=== PATIENT | male | born 1935 | race Caucasian/White ===

== ENCOUNTER 2019-03-24 14:54 | Emergency (ER) | payer OTHER ==
--- NOTE | 2019-03-24 15:26 | ER Document Report ---
ED Medical Screen (RME) - General Chief Complaint: Diarrhea Stated Complaint: DIARRHEA Time Seen by Provider: 03/24/19 15:18 Notes: HPI: 83-year-old male with history of renal failure who is not yet on dialysis presenting for shortness of breath for 1 week. Patient states he has some intermittent chest pain and feels like his heart is beating irregularly at times. He denies abdominal pain but states he has had multiple episodes of diarrhea over the last week. No blood in his stool that he is aware of. No fever. Patient states that he has a shunt in the left forearm and wrist area I have greeted and performed a rapid initial assessment of this patient. A comprehensive ED assessment and evaluation of the patient, analysis of test results and completion of the medical decision making process will be conducted by additional ED providers PHYSICAL EXAMINATION: GENERAL: Well-appearing, well-nourished and in no acute distress. HEAD: Atraumatic, normocephalic. EYES: sclera anicteric, conjunctiva are normal. ENT: Moist mucous membranes. NECK: Normal range of motion LUNGS: Normal work of breathing, slight scattered crackles at the bases bilaterally HEART: 2+ radial pulses bilaterally, regular rate and rhythm ABD: limited by positioning for exam in triage. No abdominal pain on palpation EXTREMITIES: no pitting or edema. No cyanosis. Shunt in the left wrist and forearm region with positive thrill and bruit NEUROLOGICAL: No focal neurological deficits. Moves all extremities spontaneously and on command. PSYCH: Normal mood, normal affect. SKIN: Warm, Dry, normal turgor, no rashes or lesions noted. - Related Data Allergies/Adverse Reactions: Sulfa (Sulfonamide Antibiotics) Allergy (Verified 03/24/19 15:18) Physical Exam - Vital signs Vitals: Temp Pulse Resp BP Pulse Ox 98.1 F 54 L 20 148/54 H 96 03/24/19 15:07 03/24/19 15:07 03/24/19 15:07 03/24/19 15:07 03/24/19 15:07 Course - Vital Signs Vital signs: Temp Pulse Resp BP Pulse Ox 98.1 F 54 L 20 148/54 H 96 03/24/19 15:07 03/24/19 15:07 03/24/19 15:07 03/24/19 15:07 03/24/19 15:07
--- NOTE | 2019-03-24 16:16 | RADIOLOGY REPORT (SQ) ---
EXAM DESCRIPTION: CHEST 2 VIEWS COMPLETED DATE/TIME: 03/24/2019 4:05 pm REASON FOR STUDY: sob COMPARISON: None. NUMBER OF VIEWS: Two view. TECHNIQUE: Frontal and lateral radiographic views of the chest acquired. LIMITATIONS: None. FINDINGS: LUNGS AND PLEURA: Chronic interstitial changes. No opacities, masses or pneumothorax. No pleural effusion. Attenuated blood vessels and flattened melany-diaphragms. MEDIASTINUM AND HILAR STRUCTURES: No masses. No contour abnormalities. HEART AND VASCULAR STRUCTURES: Heart normal in size and contour. No evidence for failure. BONES: No acute findings. Degenerative changes in the spine. HARDWARE: None in the chest. OTHER: No other significant finding. IMPRESSION: COPD. NO ACUTE RADIOGRAPHIC FINDING IN THE CHEST. TECHNICAL DOCUMENTATION: JOB ID: [id number] [employer]- All Rights Reserved Reading location - IP/workstation name: [email or web address]
[2019-03-24 18:52] LABS: ABSOLUTE EOSINOPHILS # (AUTO) 0.1 10^3/uL (0.0-0.6); ABSOLUTE LYMPHOCYTES (AUTO) 1.1 10^3/uL (0.5-4.7); ABSOLUTE MONOCYTES (AUTO) 0.8 10^3/uL (0.1-1.4); ABSOLUTE NEUT (AUTO) 4.5 10^3/uL (1.7-8.2); BASOPHILS % (AUTO) 0.5 % (0-2); EOSINOPHILS % (AUTO) 1.1 % (0-6); HEMATOCRIT 23.6 % (37.9-51.0); LYMPHOCYTES % (AUTO) 16.9 % (13-45); MEAN CORPUSCULAR HGB CONC 33.2 g/dL (32.0-36.0); MEAN CORPUSCULAR VOLUME 90 fl (80-97); PLATELET COUNT 180 10^3/uL (150-450); RED BLOOD COUNT 2.62 10^6/uL (4.35-5.55); RED CELL DISTRIBUTION WIDTH 18.2 % (11.5-14.0); SEGMENTED NEUTROPHILS % (AUTO) 69.5 % (42-78); TOTAL CELLS COUNTED % (AUTO) 100 %; WHITE BLOOD COUNT 6.5 10^3/uL (4.0-10.5)
[2019-03-24 18:57] LABS: HEMOGLOBIN 7.9 g/dL (13.5-17.0)
--- NOTE | 2019-03-24 18:57 | ER Document Report ---
ED General - General Chief Complaint: Diarrhea Stated Complaint: DIARRHEA Time Seen by Provider: 03/24/19 15:18 Primary Care Provider: LEONOR ADAIR MD [Primary Care Provider] - Follow up as needed Mode of Arrival: Medic Information source: Patient Notes: 83-year-old male arrives with chief complaint of chest pain abdominal pain diarrhea for 1 week. Patient reports he has kidney failure and followed by Dr. Martinez has a history of CHF. Patient reports he has had anemia in the past as well and dyspnea on exertion.. Walking only 10 to 15 feet to his bathroom. And 3 pillow orthopnea. Patient has had renal insufficiency since 2005 and has a fistula in his left forearm but has not had dialysis as yet. He reports his last creatinine was a 5. Patient also admits to some mild leg edema from his feet to his knees but on exam this is very minimal. TRAVEL OUTSIDE OF THE [place] IN LAST 30 DAYS: No - HPI Onset: Other - this week Onset/Duration: Sudden Quality of pain: Achy Severity: None Pain Level: Denies Associated symptoms: None, Diarrhea, Shortness of breath, Other - vitale Exacerbated by: Denies Relieved by: Denies Similar symptoms previously: Yes Recently seen / treated by doctor: Yes - Patient reports he was taken off of his Lasix by the [place] [facility] - Related Data Allergies/Adverse Reactions: Sulfa (Sulfonamide Antibiotics) Allergy (Verified 03/24/19 15:18) Home Medications: albuterol,amlodipine, aspirin, atorvastatin, cholecalciferol, docusate sodium, lasix, losarten, metoprolol, tiotropium inhaler. Past Medical History - Social History Smoking Status: Former Smoker Chew tobacco use (# tins/day): No Frequency of alcohol use: None Drug Abuse: None Family History: Reviewed & Not Pertinent Patient has suicidal ideation: No Patient has homicidal ideation: No - Past Medical History Cardiac Medical History: Reports: Hx Hypercholesterolemia, Hx Hypertension Pulmonary Medical History: Reports: Hx COPD Renal/ Medical History: Reports: Hx End Stage Renal Disease - fistula left arm Musculoskeletal Medical History: Reports Hx Arthritis - generalized Past Surgical History: Reports: Hx Abdominal Surgery - hernia repair Physical Exam - Vital signs Vitals: Temp Pulse Resp BP Pulse Ox 98.1 F 54 L 20 148/54 H 96 03/24/19 15:07 03/24/19 15:07 03/24/19 15:07 03/24/19 15:07 03/24/19 15:07 Course - Vital Signs Vital signs: Temp Pulse Resp BP Pulse Ox 98.5 F 79 23 H 164/64 H 96 03/25/19 00:31 03/25/19 01:50 03/25/19 01:50 03/25/19 01:36 03/25/19 01:50 - Laboratory Result Diagrams: 03/24/19 17:53 03/24/19 17:53 Laboratory results interpreted by me: 03/24/19 03/24/19 03/24/19 17:53 17:53 17:53 RBC 2.62 L Hgb 7.9 L Hct 23.6 L RDW 18.2 H Potassium 5.1 H Chloride 116 H Carbon Dioxide 16 L BUN 98 H Creatinine 6.45 H Est GFR ( Amer) 10 L Est GFR (MDRD) Non-Af 8 L Calcium 7.5 L NT-Pro-B Natriuret Pep 80326 H Total Protein 5.9 L Albumin 3.4 L Urine Protein Urine Glucose (UA) Urine Blood Crossmatch 03/24/19 03/24/19 18:40 21:45 RBC Hgb Hct RDW Potassium Chloride Carbon Dioxide BUN Creatinine Est GFR ( Amer) Est GFR (MDRD) Non-Af Calcium NT-Pro-B Natriuret Pep Total Protein Albumin Urine Protein >=500 H Urine Glucose (UA) 50 H Urine Blood SMALL H Crossmatch See Detail Critical Care Note - Critical Care Note Comments: I discussed this case with Dr. Devi at 0 130 and he advises that this is not his patient.. Patient should follow-up with his doctor. Discharge - Discharge Clinical Impression: VITALE (dyspnea on exertion), SOB (shortness of breath), Encounter for blood transfusion CHF (congestive heart failure) Qualifiers: Heart failure type: unspecified Heart failure chronicity: unspecified Qualified Code(s): I50.9 - Heart failure, unspecified Anemia Qualifiers: Anemia type: unspecified type Qualified Code(s): D64.9 - Anemia, unspecified Condition: Good Disposition: HOME, SELF-CARE Additional Instructions: Follow-up with your doctor today return to ER as needed; you may need dialysis soon; avoid extensive exercise or walking till seen by your physician. Referrals: LEONOR ADAIR MD [Primary Care Provider] - Follow up as needed
[2019-03-24 19:09] LABS: ALBUMIN 3.4 g/dL (3.5-5.0); ALKALINE PHOSPHATASE 67 U/L (38-126); ANION GAP 11 (5-19); ASPARTATE AMINO TRANSFERASE 17 U/L (17-59); BILIRUBIN,TOTAL 0.3 mg/dL (0.2-1.3); BLOOD UREA NITROGEN 98 mg/dL (7-20); CALCIUM 7.5 mg/dL (8.4-10.2); CARBON DIOXIDE 16 mmol/L (22-30); CHLORIDE 116 mmol/L (98-107); GLUCOSE 97 mg/dL (75-110); POTASSIUM 5.1 mmol/L (3.6-5.0); TOTAL PROTEIN 5.9 g/dL (6.3-8.2)
[2019-03-24 19:19] LABS: APPEARANCE,URINE SLIGHTLY-CLOUDY; BILIRUBIN,URINE NEGATIVE (NEGATIVE); COLOR,URINE YELLOW; GLUCOSE, URINE 50 mg/dL (NEGATIVE); KETONES,URINE NEGATIVE (NEGATIVE); LEUKOCYTE ESTERASE,URINE NEGATIVE (NEGATIVE); NITRITE,URINE NEGATIVE (NEGATIVE); PROTEIN,URINE >=500 mg/dL (NEGATIVE); URINE SPECIFIC GRAVITY 1.013; UROBILINOGEN,URINE NEGATIVE mg/dL (<2.0)
[2019-03-24 19:25] LABS: TROPONIN I 0.058 ng/mL
[2019-03-24] MEDS ORDERED: BUMETANIDE INJ/PF 1 MG/4 ML SDV IV ONE (19:27)
[2019-03-24] MEDS ORDERED: FUROSEMIDE INJ/PF 20 MG/2 ML SDV IV ONE (19:27)
[2019-03-24] MEDS ORDERED: FUROSEMIDE INJ/PF 20 MG/2 ML SDV ONE (19:57)
[2019-03-24] MEDS ORDERED: NORMAL SALINE 250 ML IV PRN ×2 (21:07)
[2019-03-25 04:10] VITALS: BP 180/58
--- NOTE | 2019-03-25 19:43 | EKG REPORT ---
SEVERITY:- ABNORMAL ECG - SINUS RHYTHM NONSPECIFIC T ABNORMALITIES, LATERAL LEADS : Confirmed by: Mora Broderick MD 25-Mar-2019 19:43:14
== END 2019-03-25 04:11 | disposition home or self-care (01) ==
LOC: ER 14:54
DX: I13.2 Hypertensive heart and chronic kidney disease with heart failure and with stage 5 chronic kidney disease, or end stage renal disease (principal); I50.9 Heart failure, unspecified; N18.6 End stage renal disease; D63.1 Anemia in chronic kidney disease; R19.7 Diarrhea, unspecified; R07.9 Chest pain, unspecified; R10.9 Unspecified abdominal pain; E78.00 Pure hypercholesterolemia, unspecified; J44.9 Chronic obstructive pulmonary disease, unspecified; Z79.899 Other long term (current) drug therapy; Z79.82 Long term (current) use of aspirin; Z88.2 Allergy status to sulfonamides; Z87.891 Personal history of nicotine dependence
CPT/HCPCS: 93005; 99285; 96374; 96375; 86900; 86901; 36415; 36430; 86850; 85025; 80053; 81001; 84484; 86920; 83880; 71046; 93010; P9016; J3490; J1940

== ENCOUNTER → 2019-03-26 | Outpatient (CLI) | payer OTHER ==
[2019-03-28 07:37] LABS: HEPATITIS C VIRUS AB <0.1 s/co ratio (0.0-0.9); HEPATITS B SURFACE ANTIGEN Negative (Negative)
[2019-03-28 13:47] LABS: HEPATITIS B CORE AB TOT Negative (Negative)
== END ==
LOC: OD 14:21
PROVIDERS: ATTEND Internal Medicine Nephrology
DX: N18.6 End stage renal disease (principal); Z11.59 Encounter for screening for other viral diseases
CPT/HCPCS: 36415; 86317; 86704; 86803; 86804; 87340